=== PATIENT | female | born 1975 | race Caucasian/White ===

== ENCOUNTER → 2020-03-24 12:13 | Outpatient (BNVA) | payer OTHER, SELFPAY | PROVIDERS: Visit Provider Physician Assistant | DX: E66.01 Morbid (severe) obesity due to excess calories (principal); Z68.42 Body mass index [BMI] 45.0-49.9, adult; Z71.3 Dietary counseling and surveillance | CPT/HCPCS: 99214 ==

== ENCOUNTER → 2020-04-23 08:37 | Outpatient (BNVA) | payer OTHER, SELFPAY | PROVIDERS: Visit Provider Dietitian, Registered | DX: Z76.89 Persons encountering health services in other specified circumstances (principal) ==

== ENCOUNTER → 2020-08-05 14:56 | Outpatient (BNVA) | payer OTHER, SELFPAY | PROVIDERS: Visit Provider Surgery | DX: Z01.818 Encounter for other preprocedural examination (principal); E66.01 Morbid (severe) obesity due to excess calories; Z68.42 Body mass index [BMI] 45.0-49.9, adult; R06.02 Shortness of breath | CPT/HCPCS: 99212 ==

== ENCOUNTER 2020-08-06 10:15 | Outpatient (REF) | payer OTHER, SELFPAY ==
--- NOTE | ~2020-08-06 | XR_ITS ---
EXAMINATION: XR CHEST CLINICAL INFORMATION: Shortness of breath COMPARISON: Chest radiographs 03/01/2018 TECHNIQUE: 2 views of the chest were obtained. FINDINGS: The lungs are clear. The vascularity is normal. There is no airspace consolidation or groundglass opacity or effusion. The costophrenic sulci are clear. The heart is normal in size. The hilar and mediastinal contours are unremarkable. No visible acute bony abnormality. XR/XR chest 2V IMPRESSION: Unremarkable examination.
--- NOTE | 2020-08-06 10:28 | ECG_ITS ---
Test Reason : SOB Blood Pressure : / mmHG Vent. Rate : 074 BPM Atrial Rate : 074 BPM P-R Int : 168 ms QRS Dur : 086 ms QT Int : 382 ms P-R-T Axes : 044 002 018 degrees QTc Int : 424 ms Normal sinus rhythm Normal ECG When compared with ECG of 01-MAR-2018 08:43, No significant change was found Referred By: Adrianne Bal Electronically Signed By:Jay Felder
[2020-08-06 11:08] LABS: MANUAL DIFF FLAG NO
[2020-08-06 11:27] LABS: Basophils Percent Auto 0.9 % (0-2); Eosinophils Absolute Auto 0.1 X10*3/uL (0.0-0.4); Hematocrit 32.3 % (37-47); Hemoglobin 10.2 g/dl (12.0-16.0); Imm Gran Abs Auto 0.01 X10*3/uL (0.00-0.03); Imm Gran Pct Auto 0.2 % (0.0-0.4); Lymphocytes Absolute Auto 1.6 X10*3/uL (1.2-4.9); Mean Corpuscular HGB Conc 31.6 g/dl (31.0-35.0); Mean Corpuscular Hemoglobin 25.1 pg (27.0-33.0); Mean Corpuscular Volume 79.6 fL (80-98); Mean Platelet Volume 10.2 fL (9.4-12.3); Monocytes Absolute Auto 0.3 X10*3/uL (0.1-1.2); Monocytes Percent Auto 6.8 % (2-11); Neutrophils Absolute Auto 2.4 X10*3/uL (2.0-8.3); Neutrophils Percent Auto 55.1 % (45-73); Platelet Count 358 X10*3/uL (160-400); Red Blood Count 4.06 X10*6/uL (4.20-5.50); Red Cell Distribution Width 16.6 % (11.0-16.0); White Blood Count 4.4 X10*3/uL (4.8-10.8)
[2020-08-06 11:40] LABS: Estimated Average Glucose 105 mg/dL; Hemoglobin A1c % 5.3 %
[2020-08-06 11:48] LABS: Alanine Aminotransferase 14 U/L (0-31); Albumin Level 4.3 g/dL (3.5-5.0); Alkaline Phosphatase 72 U/L (39-117); Anion Gap 11 (12-20); Aspartate Amino Transferase 14 U/L (5-31); Bilirubin Total 0.4 mg/dL (0.0-1.0); Blood Urea Nitrogen 15 mg/dL (9-16); C Reactive Protein 0.41 mg/dL (< or = 0.50); Calcium 9.3 mg/dL (8.4-10.2); Carbon Dioxide 23 mmol/L (22-29); Chloride 109 mmol/L (96-108); Cholesterol 224 mg/dL; Estimated Glomerular Filt Rate > 60; Glucose Fasting 93 mg/dL (60-99); HDL Cholesterol 69 mg/dL; Iron 36 mcg/dL (30-160); LDL Cholesterol Calculated 135 mg/dl; Percent Iron Saturation 8 % (15-50); Potassium 4.1 mmol/L (3.3-5.1); Sodium 139 mmol/L (135-145); Total Iron Binding Capacity 432 mcg/dL (228-428); Total Protein 7.1 g/dL (6.5-8.0); Triglycerides 101 mg/dL; Unsaturated Iron Binding 396 ug/dL
[2020-08-06 12:08] LABS: Vitamin D 25-OH Total 11.7 ng/mL (>30)
[2020-08-06 12:12] LABS: Vitamin B12 264 pg/mL (200-900)
[2020-08-10 10:58] LABS: Zinc 72 mcg/dL (60-130)
[2020-08-10 13:22] LABS: Vitamin B1 14 nmol/L (8-30)
[2020-08-11 03:11] LABS: Vitamin A 38 mcg/dL (38-98)
== END 2020-08-06 10:16 | disposition home or self-care (01) ==
LOC: HO.LAB 10:15
PROVIDERS: Visit Provider Surgery
DX: Z01.818 Encounter for other preprocedural examination (principal); R06.02 Shortness of breath; K91.2 Postsurgical malabsorption, not elsewhere classified; Z90.3 Acquired absence of stomach [part of]
CPT/HCPCS: 36415; 71046; 80053; 80061; 82306; 82607; 83036; 83540; 84425; 84443; 84590; 84630; 85025; 86140; 93005

== ENCOUNTER 2020-08-20 06:19 | Day surgery (SDC) | payer OTHER, SELFPAY ==
[2020-08-13 14:16] VITALS: BMI 46.3
--- NOTE | 2020-08-19 10:16 | P.CONAN_ITS ---
Documented by User: Brooklyn Moore 08/19/20 10:20 HPI - Anesthesia Eval Consult details Narrative: 45yo F for Upper Endoscopy h/o lap band PMFSH Active Problems Active Problems: All Active Problems (Updated 08/13/20 @ 14:17 by Jennifer Hoover) Preoperative examination (Acute) Shortness of breath (Acute) Body mass index (BMI) of 45.0 to 49.9 in adult (Acute) Vitamin D deficiency (Acute) Morbid obesity (Acute) Past Medical History Medical History COVID-19 vaccine administered Fibromyalgia High cholesterol History of lumbar puncture Hypertension Morbid obesity JEREMIAS (obstructive sleep apnea) Osteoarthritis Pituitary microadenoma with hyperprolactinemia Seizures Type 2 diabetes mellitus Family History Family History Mother Fibromyalgia Hypertension Diabetes Arthritis Sleep apnea Father No problems noted. Daughter No problems noted. Daughter No problems noted. Daughter No problems noted. Daughter No problems noted. Son No problems noted. Surgical History Surgical History History of removal of laparoscopic gastric banding device Hx of dilation and curettage Hx of laparoscopic gastric banding Hx of tonsillectomy Social History Social History Are you a primary care advocate to a significant other at home: No Do you presently have visiting nurse or other home services: No Alcohol intake: never Smoking Status: Never smoker Use of substances other than those prescribed or required for medical reasons: No Have you been hit, kicked, punched, or otherwise hurt by someone within the past year? If so, by whom?: No Advance Directives Information Provided: No Recently lost weight without trying: No Meds Allergies Allergy/AdvReac Type Severity Reaction Status Date / Time diphenhydramine Allergy Severe ANAPHYLAXIS Verified 08/20/20 06:52 [From BENADRYL] inverted sugar Allergy Severe Anaphylaxis Verified 08/20/20 06:52 lactose Allergy Severe Anaphylaxis Verified 08/20/20 06:52 peanut [PEANUT] Allergy Severe ANAPHYLAXIS Verified 08/20/20 06:52 Penicillins [PENICILLINS] Allergy Severe ANAPHYLAXIS Verified 08/20/20 06:52 pineapple [PINEAPPLE] Allergy Severe ANAPHYLAXIS Verified 08/20/20 06:52 tramadol [TRAMADOL] Allergy Severe FACIAL Verified 08/20/20 06:52 SWELLING Banana Concentrate Allergy Unknown Anaphylaxis Uncoded 08/05/20 16:25 pollen Allergy Unknown Anaphylaxis Uncoded 08/05/20 16:25 Home Medications Medication Instructions Recorded Confirmed Last Taken Type aspirin 81 mg tablet,delayed 81 mg PO DAILY 03/24/20 08/13/20 08/13/20 History release atorvastatin 10 mg tablet 10 mg PO DAILY 03/24/20 08/13/20 Unknown History baclofen 10 mg tablet 10 mg PO DAILY 03/24/20 08/13/20 Unknown History calcium carbonate 600 mg calcium 600 mg PO DAILY 03/24/20 08/13/20 Unknown His tory (1,500 mg) tablet clonidine 0.1 mg/24 hr weekly 1 patch TRANSDERMAL QWEEK 03/24/20 08/13/20 Unknown History transdermal patch clonidine HCl 0.1 mg tablet 0.1 mg PO BEDTIME 03/24/20 08/13/20 Unknown History ferrous fumarate 325 mg (106 mg 325 mg PO BID 03/24/20 08/13/20 Unknown History iron) tablet insulin glargine 100 unit/mL (3 10 unit SUBCUT QPM 03/24/20 08/13/20 Unknown History mL) subcutaneous pen insulin lispro 100 unit/mL 20.5 unit SUBCUT BID 03/24/20 08/13/20 Unknown History subcutaneous half-unit pen lisinopril 20 mg tablet 20 mg PO DAILY 03/24/20 08/13/20 Unknown History metformin 500 mg tablet 500 mg PO DAILY 03/24/20 08/13/20 Unknown History metoprolol succinate 25 mg 12.5 mg PO DAILY 03/24/20 08/13/20 Unknown History tablet,extended release 24 hr multivitamin 1 tab PO DAILY 03/24/20 08/13/20 Unknown History nitroglycerin 0.4 mg sublingual 0.4 mg SUBLINGUAL Q5M PRN 03/24/20 08/13/20 Unknown History tablet topiramate 100 mg tablet 100 mg PO DAILY 03/24/20 08/13/20 Unknown History losartan 25 mg tablet 25 mg PO DAILY 04/08/20 08/13/20 Unknown History bromocriptine 2.5 mg tablet 2.5 mg PO .tiw tab 08/05/20 08/13/20 Unknown History cabergoline 0.5 mg tablet 0.5 mg PO .tiw tab 08/05/20 08/13/20 Unknown History duloxetine 20 mg capsule,delayed 60 mg PO BID cap 08/05/20 08/13/20 Unknown History release Exam Exam Date and Time: August 19, 2020 1016 Height,Weight and Vital Signs: Height 5 ft 4 in Weight 122.379 kg Pertinent Lab Results Pertinent Lab Results: Laboratory Tests 08/06/20 08/06/20 10:31 10:31 WBC 4.4 L Hgb 10.2 L Hct 32.3 L Plt Count 358 Sodium 139 Potassium 4.1 Chloride 109 H Carbon Dioxide 23 BUN 15 Creatinine 0.72 Narrative Narrative: EKG 07/2020 Normal sinus rhythm Normal ECG When compared with ECG of 01-MAR-2018 08:43, No significant change was found Assessment and Plan Assessment Anesthesia Assessment: Chart Reviewed Documented by User: Leigha Pimentel 08/20/20 07:32 [facility] Past Medical History Medical History COVID-19 vaccine administered Fibromyalgia High cholesterol History of lumbar puncture Hypertension Morbid obesity JEREMIAS (obstructive sleep apnea) Osteoarthritis Pituitary microadenoma with hyperprolactinemia Seizures Type 2 diabetes mellitus Family History Family History Mother Fibromyalgia Hypertension Diabetes Arthritis Sleep apnea Father No problems noted. Daughter No problems noted. Daughter No problems noted. Daughter No problems noted. Daughter No problems noted. Son No problems noted. Surgical History Surgical History History of removal of laparoscopic gastric banding device Hx of dilation and curettage Hx of laparoscopic gastric banding Hx of tonsillectomy Social History Social History Are you a primary care advocate to a significant other at home: No Do you presently have visiting nurse or other home services: No Alcohol intake: never Smoking Status: Never smoker Use of substances other than those prescribed or required for medical reasons: No Have you been hit, kicked, punched, or otherwise hurt by someone within the past year? If so, by whom?: No Advance Directives Information Provided: No Recently lost weight without trying: No Meds Allergies Allergy/AdvReac Type Severity Reaction Status Date / Time diphenhydramine Allergy Severe ANAPHYLAXIS Verified 08/20/20 06:52 [From BENADRYL] inverted sugar Allergy Severe Anaphylaxis Verified 08/20/20 06:52 lactose Allergy Severe Anaphylaxis Verified 08/20/20 06:52 peanut [PEANUT] Allergy Severe ANAPHYLAXIS Verified 08/20/20 06:52 Penicillins [PENICILLINS] Allergy Severe ANAPHYLAXIS Verified 08/20/20 06:52 pineapple [PINEAPPLE] Allergy Severe ANAPHYLAXIS Verified 08/20/20 06:52 tramadol [TRAMADOL] Allergy Severe FACIAL Verified 08/20/20 06:52 SWELLING Banana Concentrate Allergy Unknown Anaphylaxis Uncoded 08/05/20 16:25 pollen Allergy Unknown Anaphylaxis Uncoded 08/05/20 16:25 Home Medications Medication Instructions Recorded Confirmed Last Taken Type aspirin 81 mg tablet,delayed 81 mg PO DAILY 03/24/20 08/13/20 08/13/20 History release atorvastatin 10 mg tablet 10 mg PO DAILY 03/24/20 08/13/20 Unknown History baclofen 10 mg tablet 10 mg PO DAILY 03/24/20 08/13/20 Unknown History calcium carbonate 600 mg calcium 600 mg PO DAILY 03/24/20 08/13/20 Unknown History (1,500 mg) tablet clonidine 0.1 mg/24 hr weekly 1 patch TRANSDERMAL QWEEK 03/24/20 08/13/20 Unknown History transdermal patch clonidine HCl 0.1 mg tablet 0.1 mg PO BEDTIME 03/24/20 08/13/20 Unknown History ferrous fumarate 325 mg (106 mg 325 mg PO BID 03/24/20 08/13/20 Unknown History iron) tablet insulin glargine 100 unit/mL (3 10 unit SUBCUT QPM 03/24/20 08/13/20 Unknown History mL) subcutaneous pen insulin lispro 100 unit/mL 20.5 unit SUBCUT BID 03/24/20 08/13/20 Unknown History subcutaneous half-unit pen lisinopril 20 mg tablet 20 mg PO DAILY 03/24/20 08/13/20 Unknown History metformin 500 mg tablet 500 mg PO DAILY 03/24/20 08/13/20 Unknown History metoprolol succinate 25 mg 12.5 mg PO DAILY 03/24/20 08/13/20 Unknown History tablet,extended release 24 hr multivitamin 1 tab PO DAILY 03/24/20 08/13/20 Unknown History nitroglycerin 0.4 mg sublingual 0.4 mg SUBLINGUAL Q5M PRN 03/24/20 08/13/20 Unknown History tablet topiramate 100 mg tablet 100 mg PO DAILY 03/24/20 08/13/20 Unknown History losartan 25 mg tablet 25 mg PO DAILY 04/08/20 08/13/20 Unknown History bromocriptine 2.5 mg tablet 2.5 mg PO .tiw tab 08/05/20 08/13/20 Unknown History cabergoline 0.5 mg tablet 0.5 mg PO .tiw tab 08/05/20 08/13/20 Unknown History duloxetine 20 mg capsule,delayed 60 mg PO BID cap 08/05/20 08/13/20 Unknown History release Exam Airway Mallampati Class: II TM Dist: >3cm Neck ROM: Full Partial: Upper Loose/Missing/Broken Teeth: Yes Heart: RRR Lungs: CTA Assessment and Plan Assessment Anesthesia Assessment: Anesthesia Plan Discussed and Chart Reviewed Final Anesthetic Review NPO: Yes ASA Class: III Final Preanesthetic Review: Meds/Allgs Chart Reviewed, Consent Obtained/Reviewed and Anes Risks/Benef Reviewed Patient Risk: Intermediate Procedure Risk: Intermediate Anesthetic Plan Anesthetic Plan: MAC: Disposition: Standard PACU
--- NOTE | 2020-08-19 13:12 | MHC.SHP ---
Pre-Procedural Eval Section B Chief Complaint: reflux disease Allergies: Allergies Allergy/AdvReac Type Severity Reaction Status Date / Time diphenhydramine Allergy Severe ANAPHYLAXIS Unverified 08/05/20 16:25 [From BENADRYL] inverted sugar Allergy Severe Anaphylaxis Verified 08/05/20 16:25 lactose Allergy Severe Anaphylaxis Verified 08/05/20 16:25 peanut [PEANUT] Allergy Severe ANAPHYLAXIS Unverified 08/05/20 16:25 Penicillins [PENICILLINS] Allergy Severe ANAPHYLAXIS Unverified 08/05/20 16:25 pineapple [PINEAPPLE] Allergy Severe ANAPHYLAXIS Unverified 08/05/20 16:25 tramadol [TRAMADOL] Allergy Severe FACIAL Unverified 08/05/20 16:25 SWELLING Banana Concentrate Allergy Unknown Anaphylaxis Uncoded 08/05/20 16:25 pollen Allergy Unknown Anaphylaxis Uncoded 08/05/20 16:25 Plan I have reviewed the history and physical and performed a pertinent physical examination on my patient. No changes have occurred unless specified.
[2020-08-20 06:53] VITALS: BP 162/96; PULSE 88; RESP 16; TEMP 36; O2SAT 97
[2020-08-20 07:03] LABS: UPreg QC Valid YES; Urine Pregnancy NEGATIVE (NEGATIVE)
[2020-08-20 07:12] LABS: Glucose, Whole Blood 98 mg/dL (60-115)
[2020-08-20] MEDS: Lactated Ringers 1,000 ML 100 ML IVCONT (07:12)
[2020-08-20 07:22] LABS: COVID-19 Test Negative (Negative)
[2020-08-20 08:05] VITALS: BP 151/106; PULSE 94; RESP 16; TEMP 35.9; O2SAT 97
--- NOTE | 2020-08-20 08:12 | PM.OP ---
Brief Operative Note Date of Service: 08/20/20 Pre-op diagnosis: History of previous gastric banding and removal Post-op diagnosis: other (Small sliding hiatal hernia and antral gastritis) Procedure: Esophagogastroduodenoscopy, antral biopsy x2 Implants: None Surgeon: Adrianne Bal MD Anesthesia: MAC Estimated blood loss (mL): 1 Pathology: other (Antral biopsy x2) Condition: stable Disposition: PACU
[2020-08-20 08:21] VITALS: BP 133/84; PULSE 82; RESP 16; TEMP 36.3; O2SAT 98
--- NOTE | 2020-08-20 08:57 | OP_ITS ---
SURGEON: Adrianne Bal MD PREOPERATIVE DIAGNOSIS: POSTOPERATIVE DIAGNOSIS: PROCEDURE PERFORMED: Esophagogastroduodenoscopy and antral biopsy x2. ESTIMATED BLOOD LOSS: COMPLICATIONS: None. ANESTHESIA: Total intravenous anesthesia with propofol given by the anesthesiologist. ASSISTANTS: None. SPECIMENS: PREPROCEDURE DIAGNOSES: History of gastric banding and gastric removal with a plan to convert to sleeve gastrectomy. POSTPROCEDURE DIAGNOSES: Small sliding hiatal hernia and antral gastritis. FINDINGS: A small sliding hiatal hernia. GE junction was located at 34 to 35 cm from the incisors. There was no evidence of mucosal lesions. There was linear erythema and granularity of the antrum. CONDITION: Postprocedure, good. DESCRIPTION OF PROCEDURE: The patient was brought into the GI suite on the stretcher and placed in the left lateral decubitus position. A safety time-out was performed. A bite block was placed between the teeth. Total intravenous anesthesia was administered using propofol by the anesthesiologist. Once the patient was adequately sedated, the gastroscope was placed into the posterior oropharynx, passed down the esophagus, evaluating the esophageal mucosa, which was normal. GE junction was located at 34 to 35 cm from the incisors. There was a small sliding hiatal hernia. The gastroscope was passed into the stomach. The stomach mucosa was evaluated and was normal. There was linear granularity and erythema, which was biopsied x2 for gastritis that was clinically noted. The gastroscope was then passed to the prepyloric region through the pylorus down to the third portion of duodenum, all of which was normal. All of these portions of the upper endoscopy were documented using photo documentation. The gastroscope was retracted back into the stomach. Stomach was desufflated and the gastroscope was removed without difficulty. The patient tolerated the procedure well and was sent to recovery room in stable condition. Adrianne Bal MD UM/MODL / [id number]
== END 2020-08-20 09:19 | disposition home or self-care (01) ==
PROVIDERS: Nurse Practitioner; Visit Provider Surgery
PROC: 0DJ08ZZ Inspection of Upper Intestinal Tract, Via Natural or Artificial Opening Endoscopic (ICD-10-PCS; CPT 43235; principal; 2020-08-20 07:30)
DX: K21.9 Gastro-esophageal reflux disease without esophagitis (principal); K29.50 Unspecified chronic gastritis without bleeding; K44.9 Diaphragmatic hernia without obstruction or gangrene; I10 Essential (primary) hypertension; G47.33 Obstructive sleep apnea (adult) (pediatric); E11.9 Type 2 diabetes mellitus without complications; D35.2 Benign neoplasm of pituitary gland; E22.1 Hyperprolactinemia; E66.01 Morbid (severe) obesity due to excess calories; Z68.42 Body mass index [BMI] 45.0-49.9, adult; Z79.4 Long term (current) use of insulin; Z79.82 Long term (current) use of aspirin; Z98.84 Bariatric surgery status; Z79.899 Other long term (current) drug therapy; Z88.0 Allergy status to penicillin; Z88.8 Allergy status to other drugs, medicaments and biological substances
CPT/HCPCS: 43239; 36415; 81025; 82947; 87635; 88305; 88342

== ENCOUNTER → 2020-08-25 09:31 | Outpatient (BNVA) | payer OTHER, SELFPAY | PROVIDERS: PCP Internal Medicine; Visit Provider Surgery | DX: E66.01 Morbid (severe) obesity due to excess calories (principal); Z68.42 Body mass index [BMI] 45.0-49.9, adult | CPT/HCPCS: 99212 ==

== ENCOUNTER → 2020-08-28 08:12 | Outpatient (BNVA) | payer OTHER, SELFPAY | PROVIDERS: PCP Internal Medicine; Visit Provider Dietitian, Registered | DX: E66.01 Morbid (severe) obesity due to excess calories (principal) | CPT/HCPCS: 97802 ==

== ENCOUNTER → 2020-09-17 08:13 | Outpatient (BNVA) | payer OTHER, SELFPAY | PROVIDERS: PCP Internal Medicine; Visit Provider Dietitian, Registered ==

== ENCOUNTER → 2020-10-07 08:01 | Outpatient (BNVA) | payer OTHER, SELFPAY | PROVIDERS: PCP Internal Medicine; Visit Provider Dietitian, Registered | DX: E66.01 Morbid (severe) obesity due to excess calories (principal) | CPT/HCPCS: 97803 ==

== ENCOUNTER → 2020-11-03 08:11 | Outpatient (BNVA) | payer OTHER, SELFPAY | PROVIDERS: PCP Internal Medicine; Visit Provider Dietitian, Registered | DX: E66.9 Obesity, unspecified (principal); Z68.42 Body mass index [BMI] 45.0-49.9, adult | CPT/HCPCS: 97803 ==

== ENCOUNTER → 2021-01-02 11:00 | Outpatient (BNVA) | payer OTHER, SELFPAY | PROVIDERS: PCP Internal Medicine; Visit Provider Dietitian, Registered | DX: E66.01 Morbid (severe) obesity due to excess calories (principal); Z68.42 Body mass index [BMI] 45.0-49.9, adult | CPT/HCPCS: 97803 ==

== ENCOUNTER → 2021-01-13 08:58 | Outpatient (BNVA) | payer OTHER, SELFPAY | PROVIDERS: PCP Internal Medicine; Visit Provider Surgery | DX: E66.01 Morbid (severe) obesity due to excess calories (principal); Z68.42 Body mass index [BMI] 45.0-49.9, adult | CPT/HCPCS: 99212 ==